=== PATIENT | male | born 1955 | race Two or more races ===

== ENCOUNTER 2025-05-30 09:15 | Inpatient (IN) | payer OTHER ==
[~2025-05-30] VITALS: Ht 213.4 cm; Wt 80.7 kg
[2025-05-30] MEDS ORDERED: VALSARTAN80 MG PO (10:51)
[2025-06-05] MEDS ORDERED: CEFTRIAXONE SODIUM 2,000 MG VIAL ONE (10:15)
[2025-06-05] MEDS ORDERED: METRONIDAZOLE/SODIUM CHLORIDE 500 MG/100 ML PIGGYBACK IV ONE (10:15)
[2025-06-05] MEDS ORDERED: ONDANSETRON HCL 2 MG/ML VIAL IV PRN (15:45)
[2025-06-05] MEDS ORDERED: DEXTROSE 50 % IN WATER 0.5 G/ML DISP.SYRIN IV PRN (15:45)
[2025-06-05] MEDS ORDERED: MORPHINE SULFATE 4 MG/ML CARTRIDGE IV PRN (15:45)
[2025-06-05] MEDS ORDERED: RINGERS SOLUTION,LACTATED 1,000 ML IV SCH (15:45)
[2025-06-05] MEDS ORDERED: OxyCODONE HCL 5 MG TABLET (ROXICODONE) PO PRN (15:45)
[2025-06-05] MEDS ORDERED: SUGAMMADEX SODIUM 200 MG/2 ML VIAL IV ONE (16:00)
[2025-06-05] MEDS ORDERED: GABAPENTIN 300 MG CAPSULE PO SCH (17:00)
[2025-06-05] MEDS ORDERED: ONDANSETRON HCL 2 MG/ML VIAL IV ONE (17:40)
[2025-06-05] MEDS ORDERED: ACETAMINOPHEN 500 MG GEL..CAP PO SCH (20:00)
[2025-06-05] MEDS ORDERED: FAMOTIDINE/PF 20 MG/2 ML VIAL IV PUSH SCH (21:00)
[2025-06-05 21:33] LABS: BASO % 0.1 % (0.1-1.2); EOS # 0.02 (0.04-0.54); EOS % 0.2 % (0.7-7.0); LYMPH # 0.62 (1.18-3.74); LYMPH % 6.2 % (19.3-53.1); MEAN PLATELET VOLUME 11.30 fl (9.4-12.4); MONO # 0.76 (0.24-0.82); MONO % 7.6 % (4.7-12.5); NEUT # 8.52 (1.56-6.13); NEUT % 85.7 % (34.0-71.1); RED CELL DISTRIBUTION WIDTH 12.4 % (11.6-14.4)
[2025-06-05 21:59] LABS: BUN CREA RATIO 11.0 (7.0-25.0); CREATININE SERUM 0.79 mg/dL (0.70-1.30); GFR 96.96; GLUCOSE FASTING 190.0 mg/dL (65-100); OSMOLALITY SERUM 283.0 MOSM/KG (275-295)
[2025-06-05 22:27] VITALS: BP 133/71; O2SAT 95
[2025-06-06 01:23] VITALS: BP 123/78; O2SAT 97
[2025-06-06] MEDS ORDERED: ENALAPRILAT DIHYDRATE 1.25 MG/ML VIAL IV PRN (06:00)
[2025-06-06 06:42] LABS: BASO % 0.2 % (0.1-1.2); EOS # 0.00 (0.04-0.54); EOS % 0.0 % (0.7-7.0); LYMPH # 0.45 (1.18-3.74); LYMPH % 4.9 % (19.3-53.1); MEAN PLATELET VOLUME 11.20 fl (9.4-12.4); MONO # 0.56 (0.24-0.82); MONO % 6.1 % (4.7-12.5); NEUT # 8.18 (1.56-6.13); NEUT % 88.5 % (34.0-71.1); RED CELL DISTRIBUTION WIDTH 12.7 % (11.6-14.4)
[2025-06-06 07:07] LABS: BUN CREA RATIO 11.0 (7.0-25.0); CREATININE SERUM 0.81 mg/dL (0.70-1.30); GFR 94.21; GLUCOSE FASTING 183.0 mg/dL (65-100); OSMOLALITY SERUM 283.0 MOSM/KG (275-295)
[2025-06-06 09:00] VITALS: BP 147/76; O2SAT 97
[2025-06-06] MEDS ORDERED: PATIENTS OWN MEDICATION (MEDICAMENTO EN PISO) PO SCH (09:00)
[2025-06-06 16:27] VITALS: BP 113/71; O2SAT 96
[2025-06-06] MEDS ORDERED: ENOXAPARIN SODIUM 40 MG/0.4 ML SYRINGE SUBCUTANEO SCH (17:00)
[2025-06-07 00:26] VITALS: BP 115/70; O2SAT 95
[2025-06-07 06:17] LABS: BASO % 1.0 % (0.1-1.2); EOS # 0.47 (0.04-0.54); EOS % 7.8 % (0.7-7.0); LYMPH # 1.06 (1.18-3.74); LYMPH % 17.6 % (19.3-53.1); MEAN PLATELET VOLUME 11.00 fl (9.4-12.4); MONO # 0.70 (0.24-0.82); MONO % 11.6 % (4.7-12.5); NEUT # 3.70 (1.56-6.13); NEUT % 61.7 % (34.0-71.1); RED CELL DISTRIBUTION WIDTH 12.9 % (11.6-14.4)
[2025-06-07 06:50] LABS: BUN CREA RATIO 8.0 (7.0-25.0); CREATININE SERUM 0.74 mg/dL (0.70-1.30); GFR 104.56; GLUCOSE FASTING 122.0 mg/dL (65-100); OSMOLALITY SERUM 284.0 MOSM/KG (275-295)
[2025-06-07 07:30] VITALS: BP 170/77; O2SAT 96
[2025-06-07] MEDS ORDERED: ENOXAPARIN SODIUM 40 MG/0.4 ML SYRINGE SUBCUTANEO SCH (09:00)
[2025-06-07] MEDS ORDERED: POTASSIUM PHOS,M-BASIC-D-BASIC 3 MM/ML VIAL IV NR (13:00)
[2025-06-07] MEDS ORDERED: AMINO ACIDS 1 EACH TABLET PO SCH (17:00)
[2025-06-07 17:32] VITALS: BP 164/81; O2SAT 97
[2025-06-08 00:37] VITALS: BP 148/65; O2SAT 97
[2025-06-08 08:23] VITALS: BP 169/70; O2SAT 97
[2025-06-08] MEDS ORDERED: NEURONTIN300 MG PO (11:30)
[2025-06-08] MEDS ORDERED: INTESTINEX680 M1 PO (11:30)
[2025-06-08] MEDS ORDERED: TYLENOL ARTHRI650 MG PO (11:30)
== END 2025-06-08 13:32 | disposition home or self-care (01) | DRG 329 ==
LOC: SURH 06-05 09:00 → O/R 06-05 09:00 → SURH 06-05 09:15 → SURG 06-05 16:28 → SURH 06-05 16:35
PROVIDERS: Internal Medicine Geriatric Medicine; ADMIT Surgery; ATTEND Surgery
PROC: 0DBP4ZZ Excision of Rectum, Percutaneous Endoscopic Approach (ICD-10-PCS; 2025-06-05)
PROC: 07BC4ZZ Excision of Pelvis Lymphatic, Percutaneous Endoscopic Approach (ICD-10-PCS; 2025-06-05)
PROC: 0DJD8ZZ Inspection of Lower Intestinal Tract, Via Natural or Artificial Opening Endoscopic (ICD-10-PCS; 2025-06-05)
PROC: 0DBM4ZZ Excision of Descending Colon, Percutaneous Endoscopic Approach (ICD-10-PCS; 2025-06-05)
PROC: 0DTN4ZZ Resection of Sigmoid Colon, Percutaneous Endoscopic Approach (ICD-10-PCS; principal; 2025-06-05 17:00)
DX: C18.7 Malignant neoplasm of sigmoid colon (principal); K56.2 Volvulus; K62.5 Hemorrhage of anus and rectum; R59.0 Localized enlarged lymph nodes; K59.09 Other constipation; D64.89 Other specified anemias; E83.39 Other disorders of phosphorus metabolism; E10.9 Type 1 diabetes mellitus without complications; I10 Essential (primary) hypertension

== ENCOUNTER 2025-07-13 08:00 | Day surgery (SDC) | payer OTHER ==
[~2025-07-13 08:00] MED LIST: INTESTINEX680 M1 PO; NEURONTIN300 MG PO; TYLENOL ARTHRI650 MG PO; VALSARTAN80 MG PO
[2025-07-13] MEDS ORDERED: CEFAZOLIN SODIUM 1,000 MG VIAL ONE (09:36)
[2025-07-13] MEDS ORDERED: BUPIVACAINE HCL 30 ML VIAL IJ ONE (11:00)
[2025-07-13] MEDS ORDERED: LIDOCAINE HCL 1%/EPINEPHRINE 20ML VIAL IJ ONE ×2 (11:00→11:37)
[2025-07-13] MEDS ORDERED: BUPIVACAINE HCL/MPF 0.5% 30ML VIAL ONE (11:36)
[2025-07-13] MEDS ORDERED: HEPARIN SODIUM,PORCINE/PF 100 UNIT/ML SYRINGE IV ONE (11:37)
[2025-07-13] MEDS ORDERED: TRAM1TAB98 PO (12:19)
== END 2025-07-13 15:00 | disposition home or self-care (01) ==
LOC: CIR.AMB 08:00
PROVIDERS: ATTEND Surgery
DX: C20 Malignant neoplasm of rectum (principal)
CPT/HCPCS: 36561; C1751